=== PATIENT | female | born 1975 | race Two or more races ===

== ENCOUNTER 2017-03-22 13:58 | Emergency (ER) | payer OTHER ==
--- NOTE | ~2017-03-22 | EKG ---
PATIENT: NOAH PAULSON UNIT #: [id number] Ventricular Rate: 111 BPM Atrial Rate: 111 BPM P-R Interval: 130 ms QRS Duration: 80 ms Q-T Interval: 334 ms QTC Calculation(Bezet): 454 ms P [place]: 57 degrees Calculated R [place]: 84 degrees Calculated T [place]: 59 degrees Diagnosis Line: Sinus tachycardia Diagnosis Line: Otherwise normal ECG Diagnosis Line: No previous ECGs available Diagnosis Line: Confirmed by HUGO SALINAS MD ([id number]) on 03/23/2017 Diagnosis Line: 4:46:22 PM INTERPRETING MD: BRAD ESCOBEDO
--- NOTE | ~2017-03-22 | CR72 ---
[facility] A Service of [facility] RADIOLOGY TEXT RESULTS PATIENT: NOAH PAULSON LOCATION: [facility] : 75 UNIT #: [id number] AGE: [address]: Sonya Villalba MD SEX: F ORDER DR: [id number] [facility] [address] [place], [place] [address] [id number] E MR#: [id number] Acc #: [id number] NAME: NOAH PAULSON. : 1975 SEX: F STUDY DATE/TIME: 03/22/2017 15:08 UNIT: [facility] ROOM: STUDY DESCRIPTION: CR Chest Single View Portable Attending Physician: Sonya Villalba M.D. Ordering Physician: Sonya Villalba M.D. Primary Care Physician: Talat Brumfield M.D. MEDICAL IMAGING REPORT This report is preliminary unless electronic signature is present EXAM Portable chest. INDICATIONS Shortness of breath starting 2 hours ago. Patient reports she does have a 10-year smoking history, and had an anxiety attack today. FINDINGS A single AP portable view of the chest shows both lungs to be clear. The heart is normal in size. The mediastinal contour is normal. No significant bone abnormalities are seen. IMPRESSION Normal portable chest. Dictated by... Farnaz Dia M.D. THIS IS AN ELECTRONICALLY VERIFIED REPORT Farnaz Dia M.D. at 03/23/2017 10:51 AM AFF/ea TD: 03/22/2017 21:09 JOB #: [id number] MEDICAL IMAGING REPORT Page 1 of 1 COPY
[~2017-03-22 13:58] MED LIST: AMOXICILLIN875 MG PO; BACTRIM DS TABL1 TA1 PO; IBUPROFEN800 MG PO; KEFLEX PO; PERCOCET5/325 PO; PRILOSEC40 MG PO; ZOFRAN ODT4 MG/UDTAB PO
[2017-03-22 15:24] LABS: BASOPHIL# 0.1 X10e3 (0-0.3); BASOPHIL% 0.6 % (0-2.5); EOSINOPHIL% 0.1 % (0.0-7.0); HEMATOCRIT 43.3 % (35.0-45.0); HEMOGLOBIN 14.4 gm/dL (12.0-16.0); LYMPHOCYTE# 2.8 X10e3 (1.0-3.5); LYMPHOCYTE% 12.4 % (17.0-45.0); MEAN CELL VOLUME 92.5 FL (83-96); MEAN CORPUSCULAR HEMOGLOBIN 30.7 PG (28-34); MEAN CORPUSCULAR HGB CONC 33.2 g/dL (30-36); MEAN PLATELET VOLUME 8.3 FL (6.5-11.5); MONOCYTE# 1.1 X10e3 (0-1.0); MONOCYTE% 4.8 % (3.0-12.0); NEUTROPHIL# 18.4 X10e3 (1.5-7.1); NEUTROPHIL% 82.1 % (40-75); PLATELET COUNT 375 X10e3 (140-420); RED BLOOD COUNT 4.68 X10e (3.90-5.30); RED CELL DISTRIBUTION WIDTH 13.3 % (11.0-15.5); WHITE BLOOD COUNT 22.4 X10e3 (4.0-10.5)
[2017-03-22 15:24] LABS: POC - CKMB <1.0 ng/mL (0.0-7.9); POC - TROPONIN <0.05 ng/mL (<=0.05)
[2017-03-22 15:28] LABS: DIFF IND YES
[2017-03-22 15:36] LABS: ALBUMIN SERUM 4.3 g/dL (3.5-5.0); BILIRUBIN, DIRECT 0.1 mg/dL (0.0-0.2); BILIRUBIN,INDIRECT 1.7 mg/dL (0.0-0.9); BILIRUBIN,TOTAL 1.8 mg/dL (0.2-2.0); CALCIUM SERUM 9.5 mg/dL (8.4-10.2); CREATININE SERUM 0.7 mg/dL (0.6-1.4); GLOM FILT RATE Estimated 107.6 mL/min (>60); POTASSIUM 3.7 mmol/L (3.5-5.1); PROTEIN TOTAL SERUM 7.5 g/dL (6.0-8.3)
[2017-03-22 16:27] LABS: PLATELET ESTIMATE NORMAL (NORMAL); RBC NORMAL YES
[2017-03-22 16:43] LABS: POC - CKMB <1.0 ng/mL (0.0-7.9); POC - TROPONIN <0.05 ng/mL (<=0.05)
== END 2017-03-22 17:50 | disposition home or self-care (01) ==
LOC: CED 13:58
PROVIDERS: Emergency Medicine
DX: F41.9 Anxiety disorder, unspecified (principal); G40.909 Epilepsy, unspecified, not intractable, without status epilepticus; F17.210 Nicotine dependence, cigarettes, uncomplicated; Z88.5 Allergy status to narcotic agent; Z88.8 Allergy status to other drugs, medicaments and biological substances; Z79.899 Other long term (current) drug therapy
CPT/HCPCS: 36415; 71010; 80048; 80076; 82553; 84443; 84484; 84703; 85025; 85379; 93005; 96361; 96374; 99285; J2060

== ENCOUNTER 2017-03-29 06:19 | Emergency (ER) | payer OTHER | END 2017-03-29 07:50 | disposition home or self-care (01) | LOC: CED 06:19 | DX: L03.115 Cellulitis of right lower limb (principal); F17.200 Nicotine dependence, unspecified, uncomplicated; Z88.5 Allergy status to narcotic agent; Z88.8 Allergy status to other drugs, medicaments and biological substances | CPT/HCPCS: 99283 ==